=== PATIENT | male | born 1975 | race Caucasian/White ===

== ENCOUNTER 2022-02-04 17:07 | Observation (INO) | payer BC ==
[2022-02-04 19:59] VITALS: BMI 26.2
[2022-02-04] MEDS ORDERED: Sodium Chloride 0.9% 1,000 ML IV SCH (20:15)
[2022-02-04] MEDS ORDERED: Ondansetron PF 4 MG/2 ML Vial IVP PRN (20:35)
[2022-02-04] MEDS ORDERED: Acetaminophen 325 MG TAB PO PRN (20:35)
[2022-02-04] MEDS ORDERED: Melatonin 3 MG TAB PO PRN (20:37)
[2022-02-04 21:08] LABS: Lactic Acid 2.1 mmol/L (0.5-2.2)
[2022-02-04 21:11] LABS: Anion Gap 14 mmol/L (10-20); BUN (Urea Nitrogen) 18 mg/dL (8.9-20.6); Calc. Creatinine Clearance 102 mL/min (70-130); Carbon Dioxide 23 mmol/L (22-29); Chloride 103 mmol/L (98-107); Estimated GFR 80; Glucose 103 mg/dL (70-105); Potassium 4.2 mmol/L (3.5-5.1); Sodium 136 mmol/L (136-145)
[2022-02-04] MEDS: Sodium Chloride 0.9% 1,000 ML IV SCH (21:18)
[2022-02-04] MEDS: Famotidine 20 MG TAB PO SCH (21:19)
[2022-02-04] MEDS ORDERED: Piperacillin/Tazobactam 3.375 GM in Sodium Chloride 0.9% 100 ML IVPB SCH (22:00)
[2022-02-04 23:18] LABS: SARS-CoV-2 NAA Rapid Test Not Detected (NotDetected)
[2022-02-05] MEDS: Sodium Chloride 0.9% 1,000 ML IV SCH (05:55)
[2022-02-05 07:26] LABS: #Lymphocytes 1.5 thou/uL (1.20-3.40); #Neutrophils 10.1 thou/uL (1.40-6.50); %Basophils 0.2 % (0.0-1.0); %Eosinophils 0.4 % (0.0-10.0); %Lymphocytes 11.8 % (21.0-51.0); %Monocytes 8.1 % (0.0-10.0); %Neutrophils 79.6 % (42.0-75.0); Hemoglobin 13.9 g/dL (14.0-18.0); Mean Corpuscular HGB CONC 31.9 g/dL (32.0-36.0); Mean Corpuscular Hemoglobin 30.4 pg (27.0-31.0); Mean Corpuscular Volume 95.5 fl (78.0-98.0); Mean Platelet Volume 9.1 fL (7.4-10.4); Platelet Count 181 10x3/uL (130-400); RBC Distribution Width 12.7 % (11.5-14.5); Red Blood Cell (RBC) Count 4.57 mill/uL (4.70-6.10); White Blood Cell (WBC) Count 12.7 10x3/uL (4.8-10.8)
[2022-02-05 07:45] LABS: ALT (SGPT) 38 U/L (8-55); AST (SGOT) 33 U/L (5-34); Alkaline Phosphatase 50 U/L (40-110); Anion Gap 12 mmol/L (10-20); BUN (Urea Nitrogen) 16 mg/dL (8.9-20.6); Bilirubin, Total 0.5 mg/dL (0.2-1.2); Calc. Creatinine Clearance 106 mL/min (70-130); Calcium 8.8 mg/dL (7.8-10.44); Carbon Dioxide 24 mmol/L (22-29); Chloride 106 mmol/L (98-107); Estimated GFR 83; Globulin 2.7 g/dL (2.4-3.5); Glucose 104 mg/dL (70-105); Potassium 3.8 mmol/L (3.5-5.1); Protein, Total 6.7 g/dL (6.0-8.3); Sodium 138 mmol/L (136-145)
[2022-02-05] MEDS: Famotidine 20 MG TAB PO SCH (08:50)
[2022-02-05] MEDS ORDERED: Enoxaparin Sodium 40 MG/0.4 ML SYRINGE SC SCH (09:00)
[2022-02-05 16:24] VITALS: BP 131/67; TEMP 98.8
[2022-02-05 18:57] LABS: Campy jejuni + coli by PCR Negative (Negative); STEC Shiga Toxin 1+2 Negative (Negative); Salmonella spp. by PCR Negative (Negative); Shigella spp + EIEC by PCR Negative (Negative)
[2022-02-06] MEDS ORDERED: LAMOTRIGINE 200 MG PO SCH (09:00)
[2022-02-06] MEDS ORDERED: Sertraline 25 MG TAB PO SCH (09:00)
[2022-02-07] MEDS ORDERED: FLU VACC QS2022-23(6MOS UP)/PF 60 MCG/0.5 ML SYRINGE IM ONE (09:00)
== END 2022-02-05 16:39 | disposition home or self-care (01) ==
LOC: INTOOBSV 17:07 → SURG A 17:07
PROVIDERS: ADMIT Internal Medicine; ATTEND Internal Medicine
DX: A41.9 Sepsis, unspecified organism (principal); R10.84 Generalized abdominal pain; R11.2 Nausea with vomiting, unspecified; R19.7 Diarrhea, unspecified; E87.20 Acidosis, unspecified; N28.89 Other specified disorders of kidney and ureter; N17.9 Acute kidney failure, unspecified; E83.52 Hypercalcemia; Z79.899 Other long term (current) drug therapy; Z20.822 Contact with and (suspected) exposure to COVID-19
CPT/HCPCS: 36415; 80053; 83605; 85025; 87505; 96372; 96374; G0378; J1650; J2543; J3490; J7050; U0002